=== PATIENT | female | born 1985 | race African-American/Black ===

== ENCOUNTER 2016-03-27 15:37 | Emergency (ER) | payer OTHER, MEDICAID ==
[~2016-03-27] VITALS: Ht 162.6 cm; Wt 99.8 kg
[~2016-03-27 15:37] MED LIST: PROAIR HFA0.09 MG/Ac IH
[2016-03-27 16:07] VITALS: BP 105/74
--- NOTE | 2016-03-27 16:12 | NUR ---
Patient ambulated to bed 6 with family. RN evaluating patient at bedside.
--- NOTE | 2016-03-27 16:14 | NUR ---
PATIENT PRESENTS TO ED WITH ABSCESS TO BUTTOCK X 4 DAYS .DENIES N/V/D; SKIN IS PINK/WARM/DRY; AAOX4 WITH EVEN AND STEADY GAIT; LUNGS CLEAR BL; HR EVEN AND REGULAR; PT DENIES ANY FEVER, CP, SOB, OR COUGH AT THIS TIME; PATIENT STATES PAIN OF 8/10 AT THIS TIME; VSS; PATIENT POSITIONED FOR COMFORT; HOB ELEVATED; BEDRAILS UP X2; BED DOWN. ER MD MADE AWARE OF PT STATUS.
[2016-03-27] MEDS ORDERED: LIDOCAINE/EPI 1% 1:100000 20 ML VIAL INJ ONE (16:25)
--- NOTE | 2016-03-27 17:47 | NUR ---
Dr. Waggoner at bedside for incision and drainage of abscess.
[2016-03-27 18:02] VITALS: BP 107/62
--- NOTE | 2016-03-27 18:02 | NUR ---
Patient discharged with v/s stable. Written and verbal after care instructions given and explained. Patient alert, oriented and verbalized understanding of instructions. Ambulatory with steady gait. All questions addressed prior to discharge. ID band removed. Patient advised to follow up with PMD. Rx of KEFLEX AND NORCO 5-325MG given. Patient educated on indication of medication including possible reaction and side effects. Opportunity to ask questions provided and answered.
== END 2016-03-27 18:02 | disposition home or self-care (01) ==
LOC: MED 15:37
DX: L05.01 Pilonidal cyst with abscess (principal); J45.909 Unspecified asthma, uncomplicated; Z88.5 Allergy status to narcotic agent; Z88.6 Allergy status to analgesic agent
CPT/HCPCS: 10080; 99283; J2001

== ENCOUNTER 2020-09-09 19:53 | Inpatient (IN) | payer OTHER, MEDICAID, SELFPAY ==
[~2020-09-09] VITALS: Ht 170.2 cm; Wt 102.1 kg
[~2020-09-09 19:53] MED LIST changes: +ALBU-118 IH; -PROAIR HFA0.09 MG/Ac IH
[2020-09-09 20:02] VITALS: BP 154/99
--- NOTE | 2020-09-09 20:14 | NUR ---
JERSEYD EVALUATED PATIENT IN [facility].
[2020-09-09] MEDS ORDERED: ONDANSETRON 4 MG/2 ML VIAL IVP ONE ×2 (20:40→23:55)
[2020-09-09] MEDS ORDERED: NACL 0.9% 1,000 ML IV SCH (20:40)
[2020-09-09] MEDS ORDERED: MORPHINE SULFATE 2 MG/ML SYR IVP ONE (20:40)
--- NOTE | 2020-09-09 21:38 | NUR ---
PATIENT AMBULATED TO BED 12 WITH STEADY GAIT.
--- NOTE | 2020-09-09 21:55 | NUR ---
PATIENT PRESENTS TO ED WITH C/O ABDOMINAL PAIN AND BACK PAIN X 2 DAYS . PT STATES HAS JUST FINISHED HER PERIOD. DENIES N/V/D; SKIN IS PINK/WARM/DRY; AAOX4 WITH EVEN AND STEADY GAIT; LUNGS CLEAR BL; HR EVEN AND REGULAR; PT DENIES ANY FEVER, CP, SOB, OR COUGH AT THIS TIME; PATIENT STATES PAIN OF 10/10 AT THIS TIME; VSS; PATIENT POSITIONED FOR COMFORT; HOB ELEVATED; BEDRAILS UP X2; BED DOWN. ER MD MADE AWARE OF PT STATUS.
[2020-09-09] MEDS ORDERED: MORPHINE SULFATE 2 MG/ML SYR ONE (22:07)
[2020-09-09] MEDS ORDERED: ONDANSETRON 4 MG/2 ML VIAL ONE (22:08)
[2020-09-09 22:16] LABS: BASOPHILS % (AUTO) 0.4 % (0.0-2.0); EOSINOPHILS % (AUTO) 0.4 % (0.0-4.0); HEMATOCRIT 35.2 % (36-48); HEMOGLOBIN 11.4 g/dL (12.0-16.0); LYMPHOCYTES # (AUTO) 1.2 K/uL (2.5-16.5); MEAN CORPUSCULAR HEMOGLOBIN 26 pg (27-31); MEAN CORPUSCULAR HGB CONC 32 g/dL (33-37); MEAN CORPUSCULAR VOLUME 81.4 fL (80-94); MONOCYTES # (AUTO) 0.4 K/uL (0.8-1.0); MONOCYTES % (AUTO) 4.6 % (1.7-9.3); NEUTROPHILS % (AUTO) 82.6 % (42.2-75.2); PLATELET COUNT (AUTO) 346 K/uL (140-450); RED BLOOD CELL COUNT(AUTO) 4.32 MIL/uL (4.20-5.40); RED CELL DISTRIBUTION WIDTH 17.2 % (11.6-13.7); WHITE BLOOD COUNT (AUTO) 9.6 K/uL (4.8-10.8)
[2020-09-09 22:29] LABS: ALBUMIN 3.4 g/dL (3.4-5.0); CARBON DIOXIDE 31.1 mmol/L (21-32); CREATININE 0.9 mg/dL (0.6-1.3); POTASSIUM 3.1 mmol/L (3.5-5.1); TOTAL BILIRUBIN 0.2 mg/dL (0.0-1.0)
[2020-09-09 22:52] LABS: APPEARANCE,URINE CLOUDY (CLEAR); BILIRUBIN,URINE 1+ (NEGATIVE); BLOOD, URINE 3+ (NEGATIVE); COLOR,URINE DARK YELLOW (YELLOW); LEUKOCYTE ESTERASE ,URINE NEGATIVE (NEGATIVE); NITRITE, URINE NEGATIVE (NEGATIVE); PH,URINE 6.5 (5.0-9.0); UGLUCOSE NEGATIVE (NEGATIVE)
[2020-09-09] MEDS ORDERED: PIPERACILLIN/TAZOBACTAM 3.375 GM in DEXTROSE 5% 50 ML IV ONE (23:40)
[2020-09-09 23:50] LABS: RBC,URINE TOO NUMEROUS TO COUN /HPF (0-5); WBC,URINE 0-5 /HPF (0-5)
[2020-09-09] MEDS ORDERED: KETOROLAC 15 MG/ML VIAL IVP ONE (23:55)
--- NOTE | 2020-09-10 00:07 | NUR ---
CALLING OUT AND MOANING. PAIN 11/29. DR. STARR AWARE, ORDERS RECEIVED
[2020-09-10] MEDS ORDERED: PIPERACILLIN/TAZOBACTAM 3.375 GM VIAL IV ONE ×2 (00:10→07:32)
[2020-09-10] MEDS ORDERED: diphenhydrAMINE 50 MG/ML VIAL IVP ONE (00:15)
--- NOTE | 2020-09-10 02:15 | NUR ---
STOOD AT SIDE OF BED AND VOIDED ON FLOOR. CLEANED, LINENS CHANGED BACK TO BED AND MADE COMFORTABLE
[2020-09-10] MEDS: DEXT 5% / NACL 0.45% 1,000 ML IV SCH ×3 (03:18→20:50)
--- NOTE | 2020-09-10 03:20 | NUR ---
LAB AT BEDSIDE
[2020-09-10 03:41] LABS: BASOPHILS % (AUTO) 0.3 % (0.0-2.0); EOSINOPHILS % (AUTO) 0.4 % (0.0-4.0); HEMATOCRIT 34.1 % (36-48); HEMOGLOBIN 10.9 g/dL (12.0-16.0); LYMPHOCYTES # (AUTO) 1.4 K/uL (2.5-16.5); LYMPHOCYTES % (AUTO) 14.4 % (20.5-51.1); MEAN CORPUSCULAR HEMOGLOBIN 26 pg (27-31); MEAN CORPUSCULAR HGB CONC 32 g/dL (33-37); MEAN CORPUSCULAR VOLUME 81.6 fL (80-94); MONOCYTES # (AUTO) 0.7 K/uL (0.8-1.0); MONOCYTES % (AUTO) 7.3 % (1.7-9.3); NEUTROPHILS # (AUTO) 7.6 K/uL (1.8-7.7); NEUTROPHILS % (AUTO) 77.6 % (42.2-75.2); PLATELET COUNT (AUTO) 319 K/uL (140-450); RED BLOOD CELL COUNT(AUTO) 4.19 MIL/uL (4.20-5.40); RED CELL DISTRIBUTION WIDTH 16.9 % (11.6-13.7); WHITE BLOOD COUNT (AUTO) 9.7 K/uL (4.8-10.8)
[2020-09-10 03:51] LABS: CARBON DIOXIDE 30.4 mmol/L (21-32); CREATININE 0.9 mg/dL (0.6-1.3); POTASSIUM 3.4 mmol/L (3.5-5.1); TOTAL BILIRUBIN 0.3 mg/dL (0.0-1.0)
--- NOTE | 2020-09-10 05:48 | NUR ---
AMBULATED TO BR WITH STEADY GAIT. HAS BEEN MOANING WITH C/O PAIN. DR. LEVINE NOTIFIED
[2020-09-10] MEDS ORDERED: MORPHINE SULFATE 2 MG/ML SYR ONE (05:55)
[2020-09-10] MEDS ORDERED: MORPHINE SULFATE 2 MG/ML SYR IVP SCH (05:55)
--- NOTE | 2020-09-10 06:20 | NUR ---
DR. VIVEROS AT BEDSIDE EXAMINING PT
--- NOTE | 2020-09-10 07:24 | NUR ---
RECEIVED REPORT FROM URMILA JOHN, TRANSFER OF CARE AT THIS TIME.
--- NOTE | 2020-09-10 07:30 | NUR ---
PT SLEEPING IN BED WITH EVEN AND UNLABORED RESPIRATIONS. PT ON CORPORATE DIRECTOR TALENT ASSESSMENT. VSS. WILL CONTINUE TO MONITOR
[2020-09-10] MEDS: PIPERACILLIN/TAZOBACTAM 3.375 GM in DEXTROSE 5% 50 ML IV SCH ×3 (08:07→21:00)
[2020-09-10] MEDS ORDERED: HYDROmorphone 1 MG/ML AMP ONE (08:27)
--- NOTE | 2020-09-10 08:30 | NUR ---
PT C/O ABDOMINAL PAIN AND REQUESTING PAIN MEDICATION. DR LEVINE NOTIFIED AND RECEIVED VERBAL ORDER. WILL ADMINISTER PER ORDER, 1MG DILAUDID IVPUSH ONCE.
[2020-09-10] MEDS ORDERED: DOCUSATE SODIUM 100 MG GELCAP PO PRN (08:45)
[2020-09-10] MEDS ORDERED: ACETAMINOPHEN 325 MG TAB PO PRN (08:45)
[2020-09-10] MEDS ORDERED: LORazepam 2 MG/ML VIAL IM/IVP PRN (08:45)
[2020-09-10] MEDS ORDERED: ONDANSETRON 4 MG/2 ML VIAL IVP PRN ×2 (08:45→11:50)
[2020-09-10] MEDS ORDERED: ZOLPIDEM 5 MG TAB PO PRN (08:45)
[2020-09-10] MEDS ORDERED: HYDROmorphone 1 MG/ML AMP IVP SCH (09:10)
--- NOTE | 2020-09-10 09:45 | NUR ---
PT RESTING IN BED WITH EVEN AND UNLABORED RESPIRATIONS. BED IN LOWEST POSITION, BRAKES LOCKED, X1 SIDERAIL UP. PT ON MONITOR, VSS. WILL CONTINUE TO MONITOR.
[2020-09-10] MEDS ORDERED: MIDAZOLAM 2 MG/2 ML VIAL ONE (10:23)
[2020-09-10] MEDS ORDERED: fentaNYL citrate 0.05 MG/ML VIAL ONE (10:23)
[2020-09-10] MEDS ORDERED: SUCCINYLCHOLINE CHLORIDE 200 MG/10 ML VIAL IVP ONE (10:25)
[2020-09-10] MEDS ORDERED: PROPOFOL 200 MG/20 ML VIAL IV ONE (10:25)
[2020-09-10] MEDS ORDERED: LIDOCAINE 1% 500 MG/50 ML VIAL ONE (10:30)
[2020-09-10] MEDS ORDERED: BUPIVACAINE-MPF/EPI 0.25% 30 ML VIAL INJ ONE (10:30)
[2020-09-10] MEDS ORDERED: LABETALOL 100 MG/20 ML VIAL ONE (10:45)
[2020-09-10] MEDS ORDERED: SEVOFLURANE 250 ML BTL INH ONE (10:45)
--- NOTE | 2020-09-10 10:53 | NUR ---
PT TAKEN TO SURGERY. GAVE REPORT TO SUKUMAR. PT WILL GO TO 120A AFTER SX.
--- NOTE | 2020-09-10 10:58 | NUR ---
Patient will be admitted to care of DR LEVINE. Admited to TELEM[employer]. Will go to room 120 . Belongings list completed. Report to SUKUMAR JOHN (SURGERY RN).
[2020-09-10] MEDS ORDERED: SUGAMMADEX SODIUM 200 MG/2 ML VIAL IV ONE (11:11)
[2020-09-10] MEDS ORDERED: ROCURONIUM 50 MG/5 ML VIAL IV ONE (11:11)
[2020-09-10] MEDS ORDERED: ONDANSETRON 4 MG/2 ML VIAL ONE (11:22)
[2020-09-10] MEDS ORDERED: MEPERIDINE 50 MG/ML SYR ONE (11:29)
[2020-09-10 11:40] LABS: CHOL/HDL RATIO 3.1 (1-4.5); FREE T4 (FREE THYROXINE) 0.91 ng/dL (0.76-1.46); PHOSPHORUS 3.1 mg/dL (2.5-4.9); THYROID STIMULATING HORMONE 0.64 uIU/mL (0.34-3.74)
[2020-09-10] MEDS ORDERED: DEXAMETHASONE 4 MG/ML VIAL ONE (11:40)
[2020-09-10] MEDS ORDERED: KETOROLAC 60 MG/2 ML VIAL IM ONE (11:47)
[2020-09-10] MEDS ORDERED: diphenhydrAMINE 50 MG/ML VIAL IVP PRN (11:50)
[2020-09-10] MEDS ORDERED: MEPERIDINE 25 MG/ML SYR IVP PRN (11:50)
[2020-09-10] MEDS: LACTATED RINGERS 1,000 ML IV SCH ×2 (11:50→20:10)
[2020-09-10] MEDS ORDERED: HYDROmorphone 1 MG/ML AMP IVP PRN (11:50)
--- NOTE | 2020-09-10 14:00 | NUR ---
PATIENT ARRIVE TO UNIT VIA GURNEY. PATIENT HAD LAPAROSCOPIC CHOLECYSTITIS PROCEDURE. PATIENT SLEEPING. BREATHING IS EVEN AND UNLABORED. VS STABLE. PATIENT HAS LEFT AC 18 WITH NS RUNNING. LUNGS ARE CLEAR. ABDOMEN HAS FOUR DRESSING ONE WITH AIMEE DRAIN LOCATED. AIMEE DRAINING. SKIN IS INTACT, WARM TO TOUCH, DRY AND CLEAN. ALL SAFETY MEASURES IN PLACE. WILL CONTINUE TO MONITOR.
--- NOTE | 2020-09-10 14:30 | NUR ---
CHECKED AIMEE DRAIN. GOT 100 ML OUT. PATIENT CONTINUE TO BE SLEEPING. ALL SAFETY MEASURES IN PLACE.
--- NOTE | 2020-09-10 15:04 | NUR ---
PATIENT HAS BEEN SCREENED AND CATEGORIZED LOW NUTRITION RISK. PATIENT WILL BE SEEN WITHIN 7 DAYS OF ADMISSION. 09/16/[address]
--- NOTE | 2020-09-10 16:30 | NUR ---
ROUNDED ON PATIENT. PATIENT SLEEPING. BREATHING IS EVEN AND UNLABORED. CHECKED AIMEE DRAIN. GOT OUT 100 ML. ALL SAFETY MEASURES IN PLACE. WILL CONTINUE TO MONITOR.
[2020-09-10] MEDS: NACL 0.9% 1,000 ML IV SCH ×2 (17:00→18:08)
--- NOTE | 2020-09-10 17:00 | NUR ---
NOTIFIED DR. ZEPEDA OF DRAINAGE. DR. ZEPEDA STATE THAT HE WOULD COME TO UNIT TO ASSESS PATIENT.
--- NOTE | 2020-09-10 17:48 | NUR ---
DR. ZEPEDA AT BEDSIDE. STATED NO NEW ORDER AND CONTINUE TO MONITOR AIMEE DRAINAGE.
--- NOTE | 2020-09-10 18:00 | NUR ---
PATIENT AWAKE. NO ACUTE DISTRESS NOTED. AT BEDSIDE. ALL SAFETY MEASURES IN PLACE WILL CONTINUE TO MONITOR.
--- NOTE | 2020-09-10 19:28 | NUR ---
ENDORSED TO SURVEILLANCE INSPECTOR NURSE FOR CONTINUITY OF CARE. PATIENT STABLE. ALL SAFETY MEASURE IN PLACE.
--- NOTE | 2020-09-10 19:30 | NUR ---
RECEIVED CARE AND REPORT FROM DAYSHIFT RN. PATIENT ALERT AND ORIENTED X4 TO PERSON, PLACE, TIME AND EVENT. PATIENT TRACKING WITH EYES AND ALERT WHEN ASKING QUESTIONS. PATIENT ON ROOM AIR OXYGEN SATURATION AT 97%, DENIES SHORTNESS OF BREATH AND DENIES ANY DIFFICULTY BREATHING. PATIENT LAYING IN THE BED HOB 30 DEGREES, VS STABLE, NO OBVIOUS SIGNS OF DISTRESS OBSERVED. PATIENT HAS A LEFT AC 22G RUNNING NS 0.9% AT 100 ML/HR, IV SITE INTACT, DRESSING DRY AND FLUSHING WELL. SKINS SHOW POST/OP ABDOMINAL SURGERY, INCISIONS NOTED ON THE ABDOMEN AND AIMEE DRAIN IN PLACE ONT HE RIGHT SIDE. PATIENT ASSISTED WITH REPOSITIONING Q2, ORIENTED TO ROOM ENVIRONMENT, NURSE CALL LIGHT LEFT WITHIN REACH OF PATIENT. BED LOCKED AND LOWERED INTO A POSITION OF SAFETY. WILL CONTINUE TO CLOSELY MONITOR AND FREQUENTLY ROUND THROUGHOUT THE SHIFT.
[2020-09-10 20:00] VITALS: BP 150/92
[2020-09-10 20:22] LABS: BARBITURATE, URINE NEGATIVE ng/ml (NEG <=200); BENZODIAZEPINE, URINE NEGATIVE ng/mL (NEG <=200); CANNABINOID, URINE POSITIVE ng/mL (NEG <=50); COCAINE, URINE NEGATIVE ng/mL (NEG <=300); OPIATE, URINE NEGATIVE ng/mL (NEG <=2000); PHENCYCLIDINE SCREEN,URINE NEGATIVE ng/mL (NEG <=25)
--- NOTE | 2020-09-10 21:08 | NUR ---
SCHEDULED MEDICATIONS GIVEN ORDERED BY MD, VS STABLE, NO OBVIOUS SIGNS OF DISTRESS OBSERVED WHILE AT BEDSIDE. PATIENT RESTIGN IN A POSITION OF COMFORT. WILL CONTINUE TO CLOSELY MONITOR AND FREQUENTLY ROUND.
--- NOTE | 2020-09-10 23:10 | NUR ---
PATIENT ASLEEP, RESTING IN A POSITION OF COMFORT, NO OBVIOUS SIGNS OF DISTRESS WHILE AT BEDSIDE, VS STABLE, AIRWAY OPEN, CLEAR AND MAINTAINABLE, HOB 30 DEGREES, OXYGEN SATURATION 97% ROOM AIR, RR 18. WILL CONTINUE TO CLOSELY MONITOR AND FREQUENTLY ROUND.
--- NOTE | 2020-09-11 01:16 | NUR ---
PATIENT RESTING IN A POSITION OF COMFORT, ALERT AND PATIENT ON PERSONAL CELL PHONE. PATIENT DENIES DISCOMFORT OR PAIN WHEN ASKED, STATED TRYING TO GET SOME REST. NO OBVIOUS SIGNS OF DISTRESS WHILE AT BEDSIDE, VS STABLE, AIRWAY OPEN, CLEAR AND MAINTAINABLE, HOB 30 DEGREES, OXYGEN SATURATION 97% ROOM AIR, RR 20. ALL SAFETY ,EASURES IN PLACE. WILL CONTINUE TO CLOSELY MONITOR AND FREQUENTLY ROUND.
--- NOTE | 2020-09-11 03:05 | NUR ---
PATIENT SLEEPING IN A POSITION OF COMFORT, HOB 30 DEGREES, AIRWAY OPEN, CLEAR AND MAINTAINABLE. VS STABLE, OXYGEN SATURATION 97%, ROOM AIR, RR 16. NO OBVIOUS SIGNS OF DISTRESS OBSERVED WHILE AT BEDSIDE. SAFETY MEASURES AND CHECKS IN PLACE. WILL CONTINUE TO CLOSELY MONITOR AND FREQUENTLY ROUND.
[2020-09-11] MEDS: LACTATED RINGERS 1,000 ML IV SCH (03:33)
[2020-09-11 04:00] VITALS: BP 129/84
[2020-09-11] MEDS: PIPERACILLIN/TAZOBACTAM 3.375 GM in DEXTROSE 5% 50 ML IV SCH ×3 (04:34→20:48)
[2020-09-11] MEDS: NACL 0.9% 1,000 ML IV SCH ×3 (04:34→23:51)
--- NOTE | 2020-09-11 04:35 | NUR ---
SCHEDULED MEDICATIONS GIVEN ORDERED BY MD, TOLERATING WELL. WILL CONTINUE TO CLOSELY MONITOR AND FREQUENTLY ROUND.
--- NOTE | 2020-09-11 05:03 | NUR ---
PATIENT AWAKE, ALERT, DENIES ANY PAIN OR DISCOMFORT WHEN ASKED. NO OBVIOUS SIGNS OF DISTRESS OBSERVED WHILE AT BEDSIDE. VS STABLE, WILL CONTINUE TO CLOSELY MONITOR AND FREQUENTLY ROUND.
[2020-09-11 05:34] LABS: BASOPHILS % (AUTO) 0.1 % (0.0-2.0); EOSINOPHILS % (AUTO) 0.1 % (0.0-4.0); HEMATOCRIT 29.9 % (36-48); HEMOGLOBIN 9.5 g/dL (12.0-16.0); LYMPHOCYTES # (AUTO) 1.3 K/uL (2.5-16.5); LYMPHOCYTES % (AUTO) 11.4 % (20.5-51.1); MEAN CORPUSCULAR HEMOGLOBIN 26 pg (27-31); MEAN CORPUSCULAR HGB CONC 32 g/dL (33-37); MEAN CORPUSCULAR VOLUME 82.7 fL (80-94); MONOCYTES # (AUTO) 0.8 K/uL (0.8-1.0); MONOCYTES % (AUTO) 7.3 % (1.7-9.3); NEUTROPHILS # (AUTO) 9.2 K/uL (1.8-7.7); NEUTROPHILS % (AUTO) 81.1 % (42.2-75.2); PLATELET COUNT (AUTO) 290 K/uL (140-450); RED BLOOD CELL COUNT(AUTO) 3.61 MIL/uL (4.20-5.40); RED CELL DISTRIBUTION WIDTH 17.3 % (11.6-13.7); WHITE BLOOD COUNT (AUTO) 11.3 K/uL (4.8-10.8)
[2020-09-11 06:12] LABS: ANION GAP 5.6 (8-16); CARBON DIOXIDE 31.7 mmol/L (21-32); CREATININE 0.9 mg/dL (0.6-1.3); POTASSIUM 3.3 mmol/L (3.5-5.1)
--- NOTE | 2020-09-11 06:15 | NUR ---
MORNING CARE, ANDRÉS CARE, ORAL CARE, HYGIENE, GOWN CHANGE, LINEN CHANGE AND SAFETY CHECKS PROVIDED. PATIENT VS STABLE, NO OBVIOUS SIGNS OF DISTRESS OBSERVED WHILE AT BEDSIDE. PATIENT TOLERATING THERAPIES WELL. REPOSITIONING ASSISTED WITH EVERY Q2 THROUGH OUT SHIFT. PATIENT RESTING WITH HOB 30 DEGREES, AIRWAY OPEN CLEAR AND MAINTAINABLE. BED LOCKED AND LOWERED INTO A POSITION OF SAFETY, CALL LIGHT WITHIN REACH OF PATIENT. DECREASED STIMULI IN ROOM ENVIRONMENT TO PROMOTE HEALING AND REST. EDUCATED PATIENT ON SAFETY MEASURES AND ALL ASPECTS OF PLAN OF CARE. WILL CONTINUE TO CLOSELY MONITOR AND FREQUENTLY ROUND.
[2020-09-11 06:37] LABS: MAGNESIUM 1.8 mg/dL (1.8-2.4); PHOSPHORUS 3.2 mg/dL (2.5-4.9)
[2020-09-11] MEDS: DEXT 5% / NACL 0.45% 1,000 ML IV SCH (06:50)
--- NOTE | 2020-09-11 07:30 | NUR ---
REPORT AND CARE ENDORSED TO DAYSHIFT RN, VS STABLE.
--- NOTE | 2020-09-11 07:35 | NUR ---
REPORT RECEIVED FROM OB GYN PHYSICIAN ASSISTANT RN. PT RESTING IN BED EYES CLOSED EASY TO AROUSE. NO S/SX OF DISTRESS AT THIS TIME. ALL SAFETY MEASURES ARE IN PLACE
[2020-09-11] MEDS ORDERED: POTASSIUM CHLORIDE 10 MEQ TABER PO SCH (08:30)
[2020-09-11] MEDS: MORPHINE SULFATE 2 MG/ML SYR IVP PRN ×3 (09:27→20:54)
--- NOTE | 2020-09-11 09:34 | NUR ---
MEDICATIONS GIVEN PER MD ORDER . PT COMPLAINS OF 10/10 PAIN PRN MED GIVEN. PT EDUCATED VERBALIZED UNDERSTANDING. PT TOLERATING BREAKFAST WELL. DENIES N/V.
--- NOTE | 2020-09-11 11:08 | NUR ---
PT RESTING IN BED. NO S/SX OF DISTRESS AT THIS TIME
[2020-09-11 12:00] VITALS: BP 122/72
--- NOTE | 2020-09-11 12:38 | NUR ---
PT STATES SHE WANTS REGULAR FOOD. PT EDUCATED ON DIET ADVANCEMENT. REINFORCEMENT NEEDED.
--- NOTE | 2020-09-11 14:00 | NUR ---
PT PROVIDED SANDWICH PT HAD 1/2 . PT TOLERATED WELL.
--- NOTE | 2020-09-11 14:41 | NUR ---
DC PLANNING: PATIENT ADMITTED WITH CHOLELITHIASIS, S/P LAP SUE WITH AIMEE DRAIN. PATIENT IS ON SSDI FOR DEVELOPMENTAL DELAY, WELFARE AND FOOD STAMPS. LIVES AT THE [facility] IN [place] ([address]), CAN'T REMEMBER THE ROOM NUMBER, ROOM IS ON THE SECOND STORY WITH STAIR ACCESS. LIVES WITH HER ISAAC, UPDATED CELL FOR [facility] IS [phone]. ORDERS FOR HOME HEALTH EVALUATION, INFORMATION FAXED TO [facility], PHONE [phone]. PATIENT HAS HAD NO PRIOR HOME HEALTH AND HAD NO PREFERRED COMPANY. PLAN IS TO DC HOME WITH HER WHEN MEDICALLY STABLE WITH HOME HEALTH EVALUATION. CM WILL FOLLOW FOR NEEDS. Addendum: 09/15/20 at 1042 by Dianna Wilkerson DC PLANNING: [facility] UNABLE TO SEE PATIENT, REFERRAL SENT TO [facility], THEY STATE THEY CAN SEE PATIENT. PHONE # FOR MARCIAL [phone], FAX [phone].
[2020-09-11 15:18] LABS: ALBUMIN 2.4 g/dL (3.4-5.0); BILIRUBIN,DIRECT 0.1 mg/dL (0.0-0.3); TOTAL BILIRUBIN 0.3 mg/dL (0.0-1.0)
--- NOTE | 2020-09-11 15:21 | NUR ---
PT COMPLAINS OF 10/10 PAIN ON RIGHT ABDOMEN. RELAXATION, ICE PACKS ,A ND DISTRACTION TECHNIQUES WERE INEFFECTIVE. PT EDUCATED AND VERBALIZED UNDERSTANDING. PRN MEDICATION
--- NOTE | 2020-09-11 15:28 | NUR ---
PT TALKING ON PHONE WITH PARTNER. NO S/SX OF DISTRESS.
--- NOTE | 2020-09-11 15:46 | NUR ---
PT ENCOURAGED TO AMBULATE
--- NOTE | 2020-09-11 16:01 | NUR ---
PTS PAIN EVALUATED . PT RESTING IN BED EYES CLOSED , BREATHING IS SYMMETRICAL
--- NOTE | 2020-09-11 16:29 | NUR ---
PT AMBULATING , PT TOLERATING WELL. DENIES DIZZINESS, N/V . NO S/SX OF DISTRESS . PT USING NON -SLIP SOCKS
--- NOTE | 2020-09-11 16:30 | NUR ---
PT EDUCATED ON INCENTIVE SPIROMETER. PT VERBALIZED UNDERSTANDING.
--- NOTE | 2020-09-11 16:41 | NUR ---
PT STATES SHE HAS NOT HAD BM. PRN MEDICATION GIVEN. PT EDUCATED ON SIDE EFFECTS.
--- NOTE | 2020-09-11 18:00 | NUR ---
PT PLACED OM WOUND CARE BED. PT TOLERATED WELL. PT EDUCATED, REINFORCEMENT NEEDED Addendum: 09/11/20 at 1925 by Marah Mcqueen RN RN WRONG PT
--- NOTE | 2020-09-11 19:03 | NUR ---
AIMEE DRAIN 15 MLS ALL SHIFT
--- NOTE | 2020-09-11 19:20 | NUR ---
PT ENDORSED TO PRIVATE BRANCH EXCHANGE INSTALLER RN FOR CONTINUITY OF CARE. PT INSTABLE CONDITION. ALL SAFETY MEASURES IN PLACE.
--- NOTE | 2020-09-11 19:30 | NUR ---
RECEIVED CARE AND REPORT FROM DAYSHIFT RN. PATIENT ALERT AND ORIENTED X4 TO PERSON, PLACE, TIME AND EVENT. PATIENT TRACKING WITH EYES AND ALERT WHEN ASKING QUESTIONS/COMMUNICATING WITH PATIENT. PATIENT ON ROOM AIR OXYGEN SATURATION AT 98%, DENIES SHORTNESS OF BREATH, DENIES ANY DIFFICULTY BREATHING, AND DENIES ANY DISCOMFORT WHEN ASKED. PATIENT LAYING IN THE BED HOB 30 DEGREES, VS STABLE, NO OBVIOUS SIGNS OF DISTRESS OBSERVED. PATIENT HAS A LEFT FA 22G RUNNING NS 0.9% AT 100 ML/HR, IV SITE INTACT, DRESSING DRY AND FLUSHING WELL. NO SIGNS OF INFILTRATION OR PAIN AT THE IV SITE. SKINS SHOW POST/OP ABDOMINAL SURGERY, INCISIONS NOTED ON THE ABDOMEN AND AIMEE DRAIN IN PLACE ON THE RIGHT SIDE, DAYSHIFT RN REPORTED 15 ML DRAINAGE OF AIMEE DRAIN THROUGHOUT THE DAYTIME. PATIENT ABLE TO AMBULATE TO AMBULATE/USE BEDSIDE COMMODE WITH RN ASSISTANCE.BED LOCKED AND LOWERED INTO A POSITION OF SAFETY, SAFETY MEASURES IN PLACE, PATIENT BEING OFFLOADED FROM PRESSURE POINTS WITH USE OF PILLOWS AND FREQUENT REPOSITIONING Q2. PROMOTING A RESTFUL HEALING ENVIRONMENT FOR THE PATIENT WITH DECREASED STIMULI, EDUCATING PATIENT ON ALL PATIENT CARE AND CARE PLAN. CALL LIGHT WITH IN REACH OF THE PATIENT AND EDUCATED ON HOW TO USE. WILL CONTINUE TO REASSESS OFTEN, CLOSELY MONITOR AND FREQUENTLY ROUND THROUGHOUT THE SHIFT.
[2020-09-11 20:00] VITALS: BP 138/80
--- NOTE | 2020-09-11 21:06 | NUR ---
SCHEDULED MEDICATIONS GIVEN ORDERED BUY MD, TOLERATING THERAPIES WELL, NO OBVIOUS SIGNS OF DISTRESS OBSERVED WHILE AT BEDSIDE. WILL CONTINUE TO CLOSELY MONITOR AND FREQUENTLY ROUND.
--- NOTE | 2020-09-11 22:01 | NUR ---
PATIENT VOIDED ONCE, RN AND COMPOUND COATING MACHINE OFFBEARER ASSISTANCE PROVIDED, SAFETY MEASURES IN PLACE, NO SIGNS OF DISTRESS OBSERVED, VS STABLE, WILL CONTINUE TO CLOSELY MONITOR AND FREQUENTLY ROUND.
--- NOTE | 2020-09-11 23:27 | NUR ---
PATIENT VOIDED, RN ASSISTANCE PROVIDED TO COMMODE AND BACK TO THE BED SAFELY, VS STABLE, NO DISTRESS OBSERVED.
--- NOTE | 2020-09-12 00:03 | NUR ---
PATIENT ASLEEP, RESTING IN A POSITION OF COMFORT, AIRWAY OPEN, CLEAR AND MAINTAINABLE. VS STABLE. NO OBVIOUS SIGNS OF DISTRESS OBSERVED WHILE AT BEDSIDE. WILL CONTINUE TO CLOSELY MONITOR AND FREQUENTLY ROUND.
--- NOTE | 2020-09-12 01:06 | NUR ---
PATIENT VOIDED, RN ASSISTANCE PROVIDED TO COMMODE AND BACK TO BED SAFELY, VS STABLE, NO SIGNS OF DISTRESS. WILL CONTINUE TO CLOSELY MONITOR AND FREQUENTLY ROUND.
--- NOTE | 2020-09-12 02:16 | NUR ---
PATIENT RESTING IN A POSITION OF COMFORT, AIRWAY OPEN, CLEAR AND MAINTAINABLE, NO OBVIOUS SIGNS OF DISTRESS OBSERVED WHILE AT BEDSIDE. HOB 30 DEGREES, VS STABLE, WILL CONTINUE TO CLOSELY MONITOR AND FREQUENTLY ROUND.
[2020-09-12] MEDS: MORPHINE SULFATE 2 MG/ML SYR IVP PRN (02:19)
[2020-09-12 04:00] VITALS: BP 128/88
[2020-09-12] MEDS: PIPERACILLIN/TAZOBACTAM 3.375 GM in DEXTROSE 5% 50 ML IV SCH (04:37)
--- NOTE | 2020-09-12 05:05 | NUR ---
SCHEDULED MEDICATIONS GIVEN ORDERED BY MD, TOLERATING WELL.
[2020-09-12 05:34] LABS: BASOPHILS % (AUTO) 0.4 % (0.0-2.0); EOSINOPHILS # (AUTO) 0.1 K/uL (0-0.4); EOSINOPHILS % (AUTO) 0.8 % (0.0-4.0); HEMATOCRIT 27.9 % (36-48); HEMOGLOBIN 9.1 g/dL (12.0-16.0); LYMPHOCYTES # (AUTO) 1.8 K/uL (2.5-16.5); LYMPHOCYTES % (AUTO) 22.9 % (20.5-51.1); MEAN CORPUSCULAR HEMOGLOBIN 27 pg (27-31); MEAN CORPUSCULAR HGB CONC 33 g/dL (33-37); MEAN CORPUSCULAR VOLUME 81.9 fL (80-94); MONOCYTES # (AUTO) 0.6 K/uL (0.8-1.0); MONOCYTES % (AUTO) 7.5 % (1.7-9.3); NEUTROPHILS # (AUTO) 5.4 K/uL (1.8-7.7); NEUTROPHILS % (AUTO) 68.4 % (42.2-75.2); PLATELET COUNT (AUTO) 272 K/uL (140-450); RED BLOOD CELL COUNT(AUTO) 3.41 MIL/uL (4.20-5.40); RED CELL DISTRIBUTION WIDTH 17.5 % (11.6-13.7); WHITE BLOOD COUNT (AUTO) 7.9 K/uL (4.8-10.8)
[2020-09-12 05:43] LABS: MAGNESIUM 1.9 mg/dL (1.8-2.4); PHOSPHORUS 2.9 mg/dL (2.5-4.9)
[2020-09-12 05:44] LABS: ANION GAP 7.9 (8-16); CARBON DIOXIDE 28.1 mmol/L (21-32); CREATININE 0.8 mg/dL (0.6-1.3)
--- NOTE | 2020-09-12 07:30 | NUR ---
ENDORSED CARE AND REPORT TO DAYSHIFT RN, VS STABLE.
--- NOTE | 2020-09-12 07:32 | NUR ---
RECEIVED BEDSIDE REPORT FROM LANDSCAPING SPECIALIST NURSE FOR CONTINUITY OF CARE. PT IS AO X4, ABLE TO MAKE NEEDS KNOWN. RESPIRATIONS EVEN AND UNLABORED. ON ROOM AIR OXYGEN SATURATION AT 98%, NO S/S OF DISTRESS NOTED. SKIN IS WARM AND DRY. S/P LAP SUE ON 09/10. NOTED SURGICAL INCISIONS ON ABD AND A RIGHT AIMEE DRAINAGE. ONLY 10 ML OUTPUT WAS NOTED LAST NIGHT. NO SIGNS OF WOUND DRAINAGE NOTED. PATIENT DENIES PAIN AT THE MOMENT. HAS A LEFT FA 22G RUNNING NS 0.9% AT 100 ML/HR, IV SITE INTACT AND PATENT. PATIENT ABLE TO AMBULATE TO AMBULATE/USE BEDSIDE COMMODE WITH RN ASSISTANCE. PLAN OF CARE DISCUSSED. SAFETY PRECAUTIONS IN PLACE. CALL LIGHT WITHIN REACH. WILL CONTINUE TO MONITOR.
[2020-09-12 08:00] VITALS: BP 128/79
--- NOTE | 2020-09-12 09:19 | NUR ---
NO SCHEDULED MEDICATIONS TO BE GIVEN. PATIENT IS ASLEEP. NOTED CHEST RISE AND FALL. NO SIGNS OF SOB NOTED. WILL CONTINUE TO MONITOR.
[2020-09-12] MEDS ORDERED: IBUP-2213 PO (09:20)
[2020-09-12] MEDS ORDERED: CEPH250C16 PO (09:20)
--- NOTE | 2020-09-12 10:10 | NUR ---
DR. ZEPEDA AT PATIENT'S BEDSIDE ASSESSING SURGICAL WOUNDS. ALSO REMOVED RIGHT AIMEE DRAINAGE. MD CLEARED PATIENT FOR DISCHARGE. WILL ENDORSE DISCHARGE INSTRUCTIONS TO PATIENT.
[2020-09-12 10:34] VITALS: BP 128/79
[2020-09-12] MEDS: NACL 0.9% 1,000 ML IV SCH (10:45)
--- NOTE | 2020-09-12 11:15 | NUR ---
ENDORSED DISCHARGE INSTRUCTIONS TO PATIENT. PT VERBALIZED UNDERSTANDING AND SIGNED DISCHARGE FORMS.
--- NOTE | 2020-09-12 11:32 | NUR ---
PATIENT DISCHARGED OFF THE UNIT. ID BAND AND IV WAS REMOVED. PATIENT PICKED UP BY AT THE FRONT LOBBY. PT WAS STABLE PRIOR TO DISCHARGE.
== END 2020-09-12 11:30 | disposition home or self-care (01) | DRG 417 ==
LOC: MED 19:53 → MTU 09-10 01:00
PROVIDERS: ADMIT Family Medicine; ATTEND Family Medicine
PROC: 0D9W40Z Drainage of Peritoneum with Drainage Device, Percutaneous Endoscopic Approach (ICD-10-PCS; 2020-09-10)
PROC: 0FT44ZZ Resection of Gallbladder, Percutaneous Endoscopic Approach (ICD-10-PCS; principal; 2020-09-10 12:00)
DX: K80.00 Calculus of gallbladder with acute cholecystitis without obstruction (principal); K65.3 Choleperitonitis; E43 Unspecified severe protein-calorie malnutrition; J45.909 Unspecified asthma, uncomplicated; Z20.822 Contact with and (suspected) exposure to COVID-19; E87.6 Hypokalemia; R16.0 Hepatomegaly, not elsewhere classified; R73.9 Hyperglycemia, unspecified; E83.51 Hypocalcemia; Z68.35 Body mass index [BMI] 35.0-35.9, adult; Z88.8 Allergy status to other drugs, medicaments and biological substances
CPT/HCPCS: 36415; 71045; 76705; 80048; 80053; 80076; 80305; 81001; 82150; 82374; 83036; 83690; 83735; 83880; 84100; 84439; 84443; 84484; 84703; 85025; 85610; 85730; 87081; 87086; 88304; 93005; 96361; 96365; 96375; 96376; 99285; J0330; J1100; J1170; J1200; J1885; J2001; J2175; J2250; J2270; J2405; J2543; J2704; J3010; J3490; J7030; J7060; J7120

== ENCOUNTER 2023-01-28 06:29 | Inpatient (IN) | payer BC, MEDICAID ==
[2023-01-28] VITALS (17 sets, daily range): BP systolic 129–187; BP diastolic 81–118; PULSE 89–116; RESP 24–36; TEMP 96.8–97.8; O2SAT 40–100
[~2023-01-28] VITALS: Ht 165.1 cm; Wt 108.4 kg
[~2023-01-28 06:29] MED LIST changes: +CEPH250C16 PO; +IBUP-2213 PO
[2023-01-28] MEDS ORDERED: ALBUTEROL SULFATE/IPRATROPIU 3 ML SOL IH ONE (06:55)
[2023-01-28] MEDS ORDERED: methylPREDNISolone SS 125 MG/2 ML VIAL IVP ONE (07:10)
[2023-01-28 08:31] LABS: BASOPHILS % (AUTO) 0.2 % (0.0-2.0); HEMATOCRIT 38.8 % (36-48); HEMOGLOBIN 12.3 g/dL (12.0-16.0); LYMPHOCYTES # (AUTO) 0.5 K/uL (2.5-16.5); LYMPHOCYTES % (AUTO) 6.8 % (20.5-51.1); MEAN CORPUSCULAR HEMOGLOBIN 25 pg (27-31); MEAN CORPUSCULAR HGB CONC 32 g/dL (33-37); MEAN CORPUSCULAR VOLUME 77.3 fL (80-94); MONOCYTES # (AUTO) 0.4 K/uL (0.8-1.0); MONOCYTES % (AUTO) 5.8 % (1.7-9.3); NEUTROPHILS # (AUTO) 6.4 K/uL (1.8-7.7); NEUTROPHILS % (AUTO) 87.2 % (42.2-75.2); PLATELET COUNT (AUTO) 286 K/uL (140-450); RED BLOOD CELL COUNT(AUTO) 5.01 MIL/uL (4.20-5.40); RED CELL DISTRIBUTION WIDTH 17.8 % (11.6-13.7); WHITE BLOOD COUNT (AUTO) 7.3 K/uL (4.8-10.8)
[2023-01-28 08:53] LABS: BLOOD GAS PH 7.326 (7.35-7.45)
[2023-01-28 08:54] LABS: BLOOD GAS BASE EXCESS -0.2 mmol/L (-2.0-2.0); BLOOD GAS HCO3 26.5 mmol/L (22-26); BLOOD GAS O2 SAT% 99.4 % (92.0-98.5); BLOOD GAS PCO2 51.9 mmHg (35-45); BLOOD GAS PO2 174.1 mmHg (75-100)
[2023-01-28 08:55] LABS: ANION GAP 12.1 (8-16); CALCIUM 8.7 mg/dL (8.5-10.1); POTASSIUM 4.1 mmol/L (3.5-5.1); TOTAL BILIRUBIN 0.3 mg/dL (0.0-1.0)
[2023-01-28 09:52] LABS: BLOOD GAS PCO2 50.7 mmHg (35-45); BLOOD GAS PO2 86.7 mmHg (75-100)
[2023-01-28 09:53] LABS: BLOOD GAS BASE EXCESS 1.2 mmol/L (-2.0-2.0); BLOOD GAS HCO3 27.5 mmol/L (22-26); BLOOD GAS O2 SAT% 96.7 % (92.0-98.5)
[2023-01-28] MEDS ORDERED: methylPREDNISolone SS 125 MG/2 ML VIAL ONE (11:09)
[2023-01-28] MEDS ORDERED: AZITHROMYCIN 500 MG in DEXTROSE 5% 250 ML IV ONE (12:10)
[2023-01-28] MEDS ORDERED: AZITHROMYCIN 500 MG INJ VIAL IV ONE (12:25)
[2023-01-28] MEDS ORDERED: cefTRIAXone 1,000 MG VIAL ONE (12:25)
[2023-01-28] MEDS ORDERED: ALBUTEROL 0.083% 2.5 MG/3 ML NEBU INH PRN (13:10)
[2023-01-28] MEDS ORDERED: IPRATROPIUM 0.02% 0.5 MG/2.5 ML NEBU INH PRN (13:50)
[2023-01-28] MEDS ORDERED: POTASSIUM CHLORIDE 10 MEQ TABER PO PRN (15:30)
[2023-01-28] MEDS ORDERED: DOCUSATE SODIUM 100 MG GELCAP PO PRN (15:30)
[2023-01-28] MEDS ORDERED: ZOLPIDEM 10 MG TAB PO PRN (15:30)
[2023-01-28] MEDS ORDERED: ACETAMINOPHEN 325 MG TAB PO PRN (15:30)
[2023-01-28] MEDS ORDERED: MAG SULF 2000 MG/WATER PREMIX 50 ML IV PRN (15:30)
[2023-01-28] MEDS ORDERED: ONDANSETRON 4 MG/2 ML VIAL IVP PRN (15:30)
[2023-01-28] MEDS: methylPREDNISolone SS 40 MG/ML VIAL IVP SCH (20:20)
[2023-01-28] MEDS ORDERED: methylPREDNISolone SS 40 MG in WATER STERILE 1 ML IV SCH (21:00)
[2023-01-29] VITALS (13 sets, daily range): BP systolic 120–156; BP diastolic 79–102; PULSE 72–92; RESP 20–28; TEMP 97.4–98.4; O2SAT 96–100
[2023-01-29] MEDS: methylPREDNISolone SS 40 MG/ML VIAL IVP SCH ×3 (04:52→20:30)
[2023-01-29 06:35] LABS: BASOPHILS % (AUTO) 0.1 % (0.0-2.0); HEMATOCRIT 37.7 % (36-48); HEMOGLOBIN 11.8 g/dL (12.0-16.0); LYMPHOCYTES # (AUTO) 0.8 K/uL (2.5-16.5); LYMPHOCYTES % (AUTO) 10.2 % (20.5-51.1); MEAN CORPUSCULAR HEMOGLOBIN 24 pg (27-31); MEAN CORPUSCULAR HGB CONC 31 g/dL (33-37); MEAN CORPUSCULAR VOLUME 77.9 fL (80-94); MONOCYTES # (AUTO) 0.6 K/uL (0.8-1.0); MONOCYTES % (AUTO) 7.8 % (1.7-9.3); NEUTROPHILS # (AUTO) 6.1 K/uL (1.8-7.7); NEUTROPHILS % (AUTO) 81.9 % (42.2-75.2); PLATELET COUNT (AUTO) 305 K/uL (140-450); RED BLOOD CELL COUNT(AUTO) 4.83 MIL/uL (4.20-5.40); RED CELL DISTRIBUTION WIDTH 17.9 % (11.6-13.7); WHITE BLOOD COUNT (AUTO) 7.5 K/uL (4.8-10.8)
[2023-01-29 07:11] LABS: ALBUMIN 2.8 g/dL (3.4-5.0); ANION GAP 13.2 (8-16); CALCIUM 9.3 mg/dL (8.5-10.1); CARBON DIOXIDE 27.9 mmol/L (21-32); POTASSIUM 4.1 mmol/L (3.5-5.1); TOTAL BILIRUBIN 0.2 mg/dL (0.0-1.0); TOTAL PROTEIN, SERUM 7.8 g/dL (6.4-8.2)
[2023-01-29] MEDS: AZITHROMYCIN 500 MG in DEXTROSE 5% 250 ML IV SCH (10:04)
[2023-01-29] MEDS: ENOXAPARIN 40 MG/0.4 ML SYR SUBQ SCH (10:04)
[2023-01-30] VITALS (8 sets, daily range): BP systolic 112–127; BP diastolic 60–81; PULSE 64–84; RESP 18–20; TEMP 97.1–98; O2SAT 97–100
[2023-01-30] MEDS: methylPREDNISolone SS 40 MG/ML VIAL IVP SCH ×3 (04:16→20:50)
[2023-01-30] MEDS: BENZONATATE 100 MG CAPLF PO PRN ×2 (10:07→14:51)
[2023-01-30] MEDS: ENOXAPARIN 40 MG/0.4 ML SYR SUBQ SCH (10:08)
[2023-01-30] MEDS: PANTOPRAZOLE 40 MG INJ VIAL IVP SCH (10:09)
[2023-01-30] MEDS: AZITHROMYCIN 500 MG in DEXTROSE 5% 250 ML IV SCH (10:09)
[2023-01-31 01:45] VITALS: PULSE 80; O2SAT 97
[2023-01-31 04:00] VITALS: BP 94/69; PULSE 68; RESP 17; TEMP 97.1; O2SAT 99
[2023-01-31] MEDS: methylPREDNISolone SS 40 MG/ML VIAL IVP SCH ×2 (04:11→14:27)
[2023-01-31 05:18] VITALS: PULSE 80; O2SAT 97
[2023-01-31] MEDS: AZITHROMYCIN 500 MG in DEXTROSE 5% 250 ML IV SCH (08:34)
[2023-01-31] MEDS: ENOXAPARIN 40 MG/0.4 ML SYR SUBQ SCH (08:36)
[2023-01-31] MEDS: PANTOPRAZOLE 40 MG INJ VIAL IVP SCH (08:37)
[2023-01-31] MEDS ORDERED: METH4TAB1 PO (10:40)
[2023-01-31] MEDS ORDERED: DOXY-487 PO (10:40)
[2023-01-31 11:20] VITALS: PULSE 72; RESP 18; O2SAT 100; O2SAT 97
[2023-01-31 12:00] VITALS: BP 137/76; PULSE 66; RESP 17; TEMP 98; O2SAT 100; O2SAT 96
== END 2023-01-31 19:10 | disposition home or self-care (01) | DRG 871 ==
LOC: MED 06:29 → MTU 13:14
PROVIDERS: ADMIT Family Medicine; ATTEND Family Medicine
PROC: 5A09357 Assistance with Respiratory Ventilation, Less than 24 Consecutive Hours, Continuous Positive Airway Pressure (ICD-10-PCS; principal; 2023-01-28)
PROC: 5A09357 Assistance with Respiratory Ventilation, Less than 24 Consecutive Hours, Continuous Positive Airway Pressure (ICD-10-PCS; 2023-01-29)
PROC: 5A09357 Assistance with Respiratory Ventilation, Less than 24 Consecutive Hours, Continuous Positive Airway Pressure (ICD-10-PCS; 2023-01-30)
PROC: 5A09357 Assistance with Respiratory Ventilation, Less than 24 Consecutive Hours, Continuous Positive Airway Pressure (ICD-10-PCS; 2023-01-31)
DX: A41.9 Sepsis, unspecified organism (principal); J18.9 Pneumonia, unspecified organism; J96.01 Acute respiratory failure with hypoxia; J96.02 Acute respiratory failure with hypercapnia; J44.1 Chronic obstructive pulmonary disease with (acute) exacerbation; J44.0 Chronic obstructive pulmonary disease with (acute) lower respiratory infection; E44.0 Moderate protein-calorie malnutrition; E66.9 Obesity, unspecified; F17.200 Nicotine dependence, unspecified, uncomplicated; Z20.822 Contact with and (suspected) exposure to COVID-19; Z88.5 Allergy status to narcotic agent; Z79.899 Other long term (current) drug therapy; Z68.39 Body mass index [BMI] 39.0-39.9, adult
CPT/HCPCS: 36415; 36600; 71045; 71275; 80053; 82803; 83880; 84484; 85025; 85379; 87040; 87081; 93005; 94640; 94660; 96365; 96367; 96375; 99291; C9113; J0456; J0696; J1650; J2405; J2920; J2930; J7060; J7613; Q0092; Q9967